=== PATIENT | female | born 1975 | race Hispanic/Latino ===

== ENCOUNTER 2020-04-19 14:08 | Emergency (ER) | payer SELFPAY ==
[~2020-04-19] VITALS: Ht 144.8 cm; Wt 68.0 kg
[2020-04-19] MEDS ORDERED: ONDANSETRON HCL INJ 2MG/ML 2ML 2 MG/ML VIAL IV STA (14:54)
[2020-04-19] MEDS ORDERED: KETOROLAC TROMETHAMINE 30 MG/ML VIAL IV STA (14:54)
[2020-04-19] MEDS ORDERED: KETOROLAC TROMETHAMINE 30 MG/ML VIAL ONE (15:06)
[2020-04-19] MEDS ORDERED: ONDANSETRON HCL INJ 2MG/ML 2ML 2 MG/ML VIAL ONE (15:06)
[2020-04-19] MEDS ORDERED: SODIUM CHLORIDE 0.9% 50ML 50 ML ONE (15:27)
[2020-04-19] MEDS ORDERED: IOPAMIDOL 370 MG/ML 200 ML INFUS..BTL INJ ONE (15:27)
--- NOTE | 2020-04-19 16:28 | Diagnostic Imaging Report ---
CT of the abdomen and pelvis, with contrast, 04/19/2020. History: Left lower quadrant pain. Comparison: None available. Technique: Multidetector CT scanning of the abdomen and pelvis was performed from the level of the lung bases to the inferior pubic rami after intravenous administration of contrast. Coronal and sagittal multiplanar reformations were obtained. RADIATION DOSE: Total DLP: 710 mGy*cm Dose modulation, iterative reconstruction, and/or weight based adjustment of the mA/kV was utilized to reduce the radiation dose to as low as reasonably achievable. Discussion: LUNG BASES: There is bibasilar atelectasis. ABDOMEN: Cholecystectomy clips are present. The liver measures over 18 cm in length but there is no focal hepatic abnormality. The biliary tree, spleen, pancreas, adrenal glands, and kidneys are normal. The hepatic vein, portal vein, and splenic vein are patent. The abdominal aorta is within normal limits for size. Evaluation of bowel is limited without oral contrast. There is no bowel dilatation. The appendix is visualized and is normal. There is no evidence of adenopathy or free fluid. A small fat-containing umbilical hernia is present. PELVIS: The bladder and and adnexa are unremarkable. Ill-defined central hypodensity is noted within the uterus. Bilateral Essure devices are noted. There is no evidence of free fluid or adenopathy. BONES AND SOFT TISSUES: No acute abnormality. IMPRESSION: 1. Hepatomegaly without focal hepatic abnormality. 2. Status post cholecystectomy. 3. Bilateral Essure devices in proper position. Central uterine hypodensity may be further evaluated with pelvic ultrasound. Signed by: Frank Valentino on 04/19/2020 4:24 PM
--- OUTSIDE RECORDS SUMMARY | 2020-04-19 16:34 | XMS REPORT | Continuity of Care Document ---
Author Author [facility] t Organization [facility] Address [address] [place] [address] Phone Unavailable Care Team Providers Care Anesthetist Name Role Phone Krupa LAKE Attphylondon Unavailable Problems This patient has no known problems. Allergies, Adverse Reactions, Alerts This patient has no known allergies or adverse reactions. Medications This patient has no known medications. Procedures This patient has no known procedures. Results Test Description Test Time Test Comments Results Result Comments Source CT ABD/PEL WITH CONTRAST-HOPD 2020-04-19 16:17:00 [facility] CENTERName: SUKUMAR ZAMBRANO : 1975 Sex: F [facility] [address] [place] [address] Patient Name: SUKUMAR ZAMBRANO MR #: [id number] : 1975 Age/Sex: 44/F Req #: [id number] [facility] Physician: Ordered by: TY LAKE MD Report #: [id number] Location: [facility] Room/Bed: Procedure: [id number] HOPD/CT ABD/PEL WITH CONTRAST-HOPD Exam Date: 04/19/20 Exam Time: 1611 REPORT STATUS: Signed CT of the abdomen and pelvis, with contrast, 04/19/2020. History: Left lower quadrant pain. Comparison: None available. Technique: Multidetector CT scanning of the abdomen and pelvis was performed from the level of the lung bases to the inferior pubic rami after intravenous administration of contrast. Coronal and sagittal multiplanar reformations were obtained. RADIATION DOSE: Total DLP: 710 mGy*cm Dose modulation, iterative reconstruction, and/or weight based adjustment of the mA/kV was utilized to reduce the radiation dose to as low as reasonably achievable. Discussion: LUNG BASES: There is bibasilar atelectasis. ABDOMEN: Cholecystectomy clips are present. The liver measures over 18 cm in length but there is no focal hepatic abnormality. The biliary tree, spleen, pancreas, adrenal glands, and kidneys are normal. The hepatic vein, portal vein, and splenic vein are patent. The abdominal aorta is within normal limits for size. Evaluation of bowel is limited without oral contrast. There is no bowel dilatation. The appendix is visualized and is normal. There is no evidence of adenopathy or free fluid. A small fat-containing umbilical hernia is present. PELVIS: The bladder and and adnexa are unremarkable. Ill-defined central hypodensity is noted within the uterus. Bilateral Essure devices are noted. There is no evidence of free fluid or adenopathy. BONES AND SOFT TISSUES: No acute abnormality. IMPRESSION: 1. Hepatomegaly without focal hepatic abnormality. 2. Status post cholecystectomy. 3. Bilateral Essure devices in proper position. Central uterine hypodensity may be further evaluated with pelvic ultrasound. Signed by: Frank Valentino on 04/19/2020 4:24 PM Dictated By: FRANK VALENTINO MD 23 Transcribed By: CHAI on 04/19/201623 COPY TO: TY LAKE MD
--- NOTE | 2020-04-19 21:38 | Emergency Department Note ---
History of Present Illnes History of Present Illness Chief Complaint: Abdominal Complaints History of Present Illness This is a 44 year old female 2 days of LLQ pain. LMP: now. +N, No vomiting. Normal BM. No melena/hematachezia. No dysuria/hematuria. No fever or chills. Appetite OK. No sore throat, congestion, loss of taste/smell. Not worse or better with eating. Worse when lays on left side. Historian: Patient Arrival Mode: Car Sanitation Supervisor Required: No Onset (how long ago): day(s) Location: abdomen Quality: cramping Radiation: Reports non-radiation Severity: moderate Duration (how long): day(s) Progression: worsening Context: Denies recent illness, Denies trauma/injury Relieving factors: none Exacerbating factors: none Associated symptoms: Denies chest pain, Denies cough, Denies fever/chills Past Medical/Family History Physician Review I have reviewed the patient's past medical and family history. Any updates have been documented here. Past Medical History Recent Fever: No Clinical Suspicion of Infectio: No New/Unexplained Change in Ment: No Past Medical History: Diabetes Past Surgical History: Cholecysctectomy, Tubal Ligation Other Surgery: ankle sx Social History Smoking Cessation: Unknown if ever smoked Counseling Performed: No Alcohol Use: None Any Illegal Drug Use: No Physically hurt or threatened: No Family History Other family history Daughter got 04/16/2020 Other Any Pre-Existing Lines (PICC,: No Review of Systems Review of Systems Constitutional: Denies chills, Denies fever EENTM: Denies nose congestion, Denies throat pain Cardiovascular: Denies chest pain Respiratory: Denies cough, Denies dyspnea Gastrointestinal: Denies diarrhea Genitourinary: Denies dysuria Musculoskeletal: Denies back pain Integumentary: Denies rash Neurological: Denies headache Endocrine: Denies increased urination Hematological/Lymphatic: Denies easy bleeding Physical Exam Related Data Allergies: Coded Allergies: No Known Allergies (Unverified , 04/19/20) Triage Vital Signs Vital Signs Date Time Temp Pulse Resp B/P (MAP) Pulse Ox O2 Delivery O2 Flow Rate FiO2 04/19/20 14:28 97.8 98 16 197/101 100 Room Air Physical Exam CONSTITUTIONAL Constitutional: Present well-developed, Present well-nourished HENT HENT: Present normocephalic, Present atraumatic, Present oropharynx normal, Present mucosae dry; Absent nasal congestion, Absent rhinorrhea HENT L/R: Present left ext ear normal, Present right ext ear normal EYES Eyes: Reports PERRL, Reports conjunctivae normal NECK Neck: Present ROM normal PULMONARY Pulmonary: Present effort normal, Present breath sounds normal CARDIOVASCULAR Cardiovascular: Present regular rhythm, Present heart sounds normal, Present capillary refill normal, Present normal rate GASTROINTESTINAL Abdominal: Present soft, Present bowel sounds normal, Present tender (RUQ and RLQ); Absent nontender, Absent distension, Absent guarding, Absent mass, Absent rebound, Absent left CVA tenderness, Absent right CVA tenderness GENITOURINARY SKIN Skin: Present warm, Present dry MUSCULOSKELETAL Musculoskeletal: Present ROM normal NEUROLOGICAL Neurological: Present alert, Present oriented x 3, Present no gross motor or sensory deficits PSYCHOLOGICAL Psychological: Present mood/affect normal, Present judgement normal Results Laboratory Laboratory comments WBC 6.7, HGB14.6, HCT 43.7, PLT 346, Na 145, K 3.7, CO2 29, CL 28, Glu 191, AST 49, UA: Glu 500, Henry neg, ket neg, SG > 1.030, Blo Large, Nit neg, manuel neg. HCG: negative. Imaging Imaging Comments CT of the abdomen and pelvis, with contrast, 04/19/2020. History: Left lower quadrant pain. Comparison: None available. Technique: Multidetector CT scanning of the abdomen and pelvis was performed from the level of the lung bases to the inferior pubic rami after intravenous administration of contrast. Coronal and sagittal multiplanar reformations were obtained. RADIATION DOSE: Total DLP: 710 mGy*cm Dose modulation, iterative reconstruction, and/or weight based adjustment of the mA/kV was utilized to reduce the radiation dose to as low as reasonably achievable. Discussion: LUNG BASES: There is bibasilar atelectasis. ABDOMEN: Cholecystectomy clips are present. The liver measures over 18 cm in length but there is no focal hepatic abnormality. The biliary tree, spleen, pancreas, adrenal glands, and kidneys are normal. The hepatic vein, portal vein, and splenic vein are patent. The abdominal aorta is within normal limits for size. Evaluation of bowel is limited without oral contrast. There is no bowel dilatation. The appendix is visualized and is normal. There is no evidence of adenopathy or free fluid. A small fat-containing umbilical hernia is present. PELVIS: The bladder and and adnexa are unremarkable. Ill-defined central hypodensity is noted within the uterus. Bilateral Essure devices are noted. There is no evidence of free fluid or adenopathy. BONES AND SOFT TISSUES: No acute abnormality. IMPRESSION: 1. Hepatomegaly without focal hepatic abnormality. 2. Status post cholecystectomy. 3. Bilateral Essure devices in proper position. Central uterine hypodensity may be further evaluated with pelvic ultrasound. Signed by: Frank Valentino on 04/19/2020 4:24 PM Assessment & Plan Medical Decision Making MDM Differential dx includes, but not limited to SBO, appy, diverticulitis, gastritis, irritable bowel, gastroenteritis, AAA, pancreatitis. Hx SBO. No SBO on CT today. CT showed hypodensity in uterus, patient made aware of need to f/u irrigation foreman and get ultrasound. Rx given for zofran by hand due to computer Rx being down. discussed BP and glu and need for F/U. Gave strict return precautions. Reassessment Reassessment Better with Toradol. Tolerated PO challenge. Assessment & Plan Final Impression: (1) Hypertension (2) Hyperglycemia (3) Abdominal pain Depart Disposition: HOME, SELF-CARE Last Vital Signs Date Time Temp Pulse Resp B/P (MAP) Pulse Ox O2 Delivery O2 Flow Rate FiO2 04/19/20 14:28 97.8 98 16 197/101 100 Room Air Home Meds No Active Prescriptions or Reported Meds Medications in the ED Ketorolac Tromethamine 30 mg ONCE STAT IV Last administered on 04/19/20at 15:01; Admin Dose 30 MG; Start 04/19/20 at 14:54; Stop 04/19/20 at 14:57; Status DC Ondansetron HCl 4 mg NOW STAT IV Last administered on 04/19/20at 15:01; Admin Dose 4 MG; Start 04/19/20 at 14:54; Stop 04/19/20 at 14:57; Status DC Ondansetron HCl 4 mg STK-MED ONCE .ROUTE ; Start 04/19/20 at 15:06; Stop 04/19/20 at 15:00; Status DC Ketorolac Tromethamine 30 mg STK-MED ONCE .ROUTE ; Start 04/19/20 at 15:06; Stop 04/19/20 at 15:00; Status DC Iopamidol 74,000 mg STK-MED ONCE INJ ; Start 04/19/20 at 15:27; Stop 04/19/20 at 15:20; Status DC Sodium Chloride 50 ml @ ud STK-MED ONCE .ROUTE ; Start 04/19/20 at 15:27; Stop 04/19/20 at 15:21; Status DC TY LAKE MD Apr 19, 2020 15:42
== END 2020-04-19 17:11 | disposition home or self-care (01) ==
LOC: FSED 14:37
DX: R10.32 Left lower quadrant pain (principal); E11.65 Type 2 diabetes mellitus with hyperglycemia; I10 Essential (primary) hypertension
CPT/HCPCS: 74177; 80053; 81003; 81025; 85025; 99284; J1885; J2405; Q9967